=== PATIENT | female | born 1995 | race Caucasian/White ===

== ENCOUNTER 2018-06-25 07:44 | Emergency (ER) | payer OTHER ==
[~2018-06-25] VITALS: Ht 167.6 cm; Wt 77.3 kg
[2018-06-25 07:49] VITALS: BP 132/93; TEMP 98.7
[2018-06-25] MEDS ORDERED: PROAIR HFA0.09 MG/AC IH (09:39)
[2018-06-25] MEDS ORDERED: MEDROL 4MG DOSPA4 MG PO (09:39)
[2018-06-25 09:51] VITALS: PULSE 102
== END 2018-06-25 09:52 | disposition home or self-care (01) ==
LOC: COL.ER 07:44
DX: J06.9 Acute upper respiratory infection, unspecified (principal)